=== PATIENT | male | born 1990 | race Two or more races ===

== ENCOUNTER 2018-07-11 16:18 | Emergency (ER) | payer OTHER ==
[2018-07-11 16:35] VITALS: BP 111/70
[2018-07-11] MEDS ORDERED: ONDANSETRON HCL INJ/PF 4 MG/2 ML SDV IV ONE (17:25)
[2018-07-11] MEDS ORDERED: HYDROXYZINE HCL INJ 50 MG/1 ML VIAL IM ONE (17:25)
--- NOTE | 2018-07-11 17:31 | ER Document Report ---
ED Medical Screen (RME) - General Chief Complaint: Anxiety Stated Complaint: PSYCH Time Seen by Provider: 07/11/18 17:22 - HPI Notes: 07/11/18 17:29 Patient with history of PTSD did not take any of his medications today but did take a herbal supplement called a K shot. States that he continues to have nausea vomiting and is having a panic attack. 07/11/18 17:30 While patient is triage area is having such a bad panic attack cannot take his vomit bag to the trash can therefore dropped on the floor - Related Data Allergies/Adverse Reactions: No Known Allergies Allergy (Unverified 07/11/18 16:20) Past Medical History - Social History Chew tobacco use (# tins/day): No Frequency of alcohol use: None Drug Abuse: None Renal/ Medical History: Denies: Hx Peritoneal Dialysis Psychiatric Medical History: Reports: Hx Depression - Anxiety, PTSD Review of Systems - Review of Systems Neurological/Psychological: Anxiety Physical Exam - Vital signs Vitals: Temp Pulse Resp BP Pulse Ox 97.4 F 81 18 111/70 97 07/11/18 16:32 07/11/18 16:32 07/11/18 16:32 07/11/18 16:32 07/11/18 16:32 - Respiratory Respiratory status: No respiratory distress Chest status: Nontender Breath sounds: Normal Chest palpation: Normal - Cardiovascular Rhythm: Regular Heart sounds: Normal auscultation Course - Vital Signs Vital signs: Temp Pulse Resp BP Pulse Ox 97.4 F 81 18 111/70 97 07/11/18 16:32 07/11/18 16:32 07/11/18 16:32 07/11/18 16:32 07/11/18 16:32 Doctor's Discharge - Discharge Instructions: Anxiety ([facility])
[2018-07-11 17:50] LABS: HEMATOCRIT 49.3 % (37.9-51.0); HEMOGLOBIN 17.3 g/dL (13.5-17.0); MEAN CORPUSCULAR HEMOGLOBIN 28.7 pg (27.0-33.4); MEAN CORPUSCULAR HGB CONC 35.1 g/dL (32.0-36.0); MEAN CORPUSCULAR VOLUME 82 fl (80-97); PLATELET COUNT 410 10^3/uL (150-450); RED BLOOD COUNT 6.02 10^6/uL (4.35-5.55); RED CELL DISTRIBUTION WIDTH 13.4 % (11.5-14.0)
[2018-07-11 18:04] LABS: ALANINE AMINOTRANSFERASE 30 U/L (21-72); ALBUMIN 5.6 g/dL (3.5-5.0); ALKALINE PHOSPHATASE 85 U/L (38-126); ASPARTATE AMINO TRANSFERASE 28 U/L (17-59); BILIRUBIN,DIRECT 0.2 mg/dL (0.0-0.4); BILIRUBIN,TOTAL 1.3 mg/dL (0.2-1.3); BLOOD UREA NITROGEN 19 mg/dL (7-20); CALCIUM 11.2 mg/dL (8.4-10.2); CARBON DIOXIDE 19 mmol/L (22-30); CHLORIDE 101 mmol/L (98-107); GLUCOSE 161 mg/dL (75-110); POTASSIUM 3.9 mmol/L (3.6-5.0); SODIUM 143.7 mmol/L (137-145); TOTAL PROTEIN 8.9 g/dL (6.3-8.2)
[2018-07-11 18:05] LABS: ACETAMINOPHEN < 10 ug/mL (10-30); ALCOHOL < 10 mg/dL (NONE DETECTED); SALICYLATE < 1.0 mg/dL (2.0-20.0)
[2018-07-11 18:07] LABS: ABSOLUTE LYMPHOCYTES# (MANUAL) 2.4 10^3/uL (0.5-4.7); ABSOLUTE MONOCYTES # (MANUAL) 1.2 10^3/uL (0.1-1.4); ABSOLUTE NEUTROPHILS# (MANUAL) 20.4 10^3/uL (1.7-8.2); BAND NEUTROPHILS % (MANUAL) 1 % (3-5); BASOPHILS % (MANUAL) 0 % (0-2); EOSINOPHILS % (MANUAL) 0 % (0-6); LYMPHOCYTES % (MANUAL) 10 % (13-45); MONOCYTES % (MANUAL) 5 % (3-13); PLATELET COMMENT ADEQUATE; SEGMENTED NEUTROPHILS % (MAN) 84 % (42-78); TOTAL CELLS COUNTED 100; TOXIC GRANULATION SLIGHT
--- NOTE | 2018-07-11 18:09 | ER Document Report ---
ED Psych Disorder / Suicide - General Chief Complaint: Anxiety Stated Complaint: PSYCH Time Seen by Provider: 07/11/18 18:17 Mode of Arrival: Ambulatory Information source: Patient Notes: Patient is a 28-year-old male with a history of PTSD, anxiety disorder, and recurrent panic attacks presents with increased anxiety and "uneasy feeling" since earlier this afternoon. Patient reports he did not take his normal medications, including buspirone and Ativan, because he did not want to "feel like a zombie." He also reports having chronic nausea that was previously controlled with medicinal marijuana, however since moving from [place] he has changed medications but does report smoking marijuana a couple weeks ago. He denies other drug use. He denies suicidal or homicidal ideations, no hallucinations. TRAVEL OUTSIDE OF THE [place] IN LAST 30 DAYS: No - HPI Patient complains to provider of: Other - Anxiety Onset: This afternoon Onset was: Gradual Quality of pain: No pain Severity: Mild Pain Level: Denies Suicide Risk Factors: Male, Panic disorder Situational problems related to: Other - Medications Normal mood: No Associated symptoms: Anxious, Irritable Similar symptoms previously: Yes Recently seen / treated by doctor: No - Related Data Allergies/Adverse Reactions: No Known Allergies Allergy (Unverified 07/11/18 16:20) Past Medical History - General Information source: Patient - Social History Smoking Status: Never Smoker Chew tobacco use (# tins/day): No Frequency of alcohol use: None Drug Abuse: None Lives with: Alone Family History: None Patient has suicidal ideation: No Patient has homicidal ideation: No - Past Medical History Cardiac Medical History: Reports: None Pulmonary Medical History: Reports: None EENT Medical History: Reports: None Neurological Medical History: Reports: None Endocrine Medical History: Reports: None Renal/ Medical History: Reports: None. Denies: Hx Peritoneal Dialysis Malignancy Medical History: Reports None GI Medical History: Reports: None Musculoskeletal Medical History: Reports None Skin Medical History: Reports None Psychiatric Medical History: Reports: Hx Depression - Anxiety, PTSD, Hx Post Traumatic Stress Disorder Traumatic Medical History: Reports: None Infectious Medical History: Reports: None Surgical Hx: Negative Past Surgical History: Reports: None - Immunizations Immunizations up to date: Yes Hx Diphtheria, Pertussis, Tetanus Vaccination: Yes History of Influenza Vaccine for 05/2017 - 09/2017 Season: Unknown Review of Systems - Review of Systems -: Yes ROS unobtainable due to patient's medical condition Constitutional: No symptoms reported EENT: No symptoms reported Cardiovascular: No symptoms reported Respiratory: No symptoms reported Gastrointestinal: No symptoms reported Genitourinary: No symptoms reported Male Genitourinary: No symptoms reported Musculoskeletal: No symptoms reported Skin: No symptoms reported Hematologic/Lymphatic: No symptoms reported Neurological/Psychological: Anxiety. denies: Homicidal ideation -: Yes All other systems reviewed and negative Physical Exam - Vital signs Vitals: Temp Pulse Resp BP Pulse Ox 97.4 F 81 18 111/70 97 07/11/18 16:32 07/11/18 16:32 07/11/18 16:32 07/11/18 16:32 07/11/18 16:32 Interpretation: Normal - General General appearance: Appears well, Alert In distress: None - HEENT Head: Normocephalic, Atraumatic Eyes: Normal Pupils: PERRL - Respiratory Respiratory status: No respiratory distress Chest status: Nontender Breath sounds: Normal Chest palpation: Normal - Cardiovascular Rhythm: Regular Heart sounds: Normal auscultation Murmur: No - Abdominal Inspection: Normal Distension: No distension Bowel sounds: Normal Tenderness: Nontender Organomegaly: No organomegaly - Rectal Tenderness: No - Deferred - Genitourinary Notes: Deferred - Back Back: Normal, Nontender - Extremities General upper extremity: Normal inspection, Nontender, Normal color, Normal ROM , Normal temperature General lower extremity: Normal inspection, Nontender, Normal color, Normal ROM , Normal temperature, Normal weight bearing. No: Alva's sign - Neurological Neuro grossly intact: Yes Cognition: Normal Orientation: AAOx4 [place] Coma Scale Eye Opening: Spontaneous Ruben Coma Scale Verbal: Oriented Ruben Coma Scale Motor: Obeys Commands [place] Coma Scale Total: 15 Speech: Normal Motor strength normal: LUE, RUE, LLE, RLE Sensory: Normal - Psychological Associated symptoms: Normal affect, Anxious - Skin Skin Temperature: Warm Skin Moisture: Dry Skin Color: Normal Course - Re-evaluation Re-evalutation: 07/11/18 19:18 Plan is to obtain labs, give IV Ativan, and reassess. 07/11/18 20:35 Patient is medically clear and feels improved after IV Ativan. He will be discharged home with return precautions and follow-up as scheduled in the morning. The patient agrees with and understands the plan. - Vital Signs Vital signs: Temp Pulse Resp BP Pulse Ox 97.4 F 81 18 111/70 97 07/11/18 16:32 07/11/18 16:32 07/11/18 16:32 07/11/18 16:32 07/11/18 16:32 - Laboratory Result Diagrams: 07/11/18 17:33 07/11/18 17:33 Laboratory results interpreted by me: 07/11/18 07/11/18 07/11/18 17:33 17:33 18:45 WBC 24.0 H RBC 6.02 H Hgb 17.3 H Seg Neuts % (Manual) 84 H Band Neutrophils % 1 L Lymphocytes % (Manual) 10 L Abs Neuts (Manual) 20.4 H Carbon Dioxide 19 L Anion Gap 24 H Glucose 161 H Calcium 11.2 H Total Protein 8.9 H Albumin 5.6 H Urine Protein 30 H Urine Ketones 80 H Salicylates < 1.0 L Acetaminophen < 10 L - Diagnostic Test Radiology reviewed: Reports reviewed - EKG Interpretation by Me EKG shows normal: Sinus rhythm Rate: Normal Rhythm: NSR [place]/QRS: No: LBBB P Waves: No: LONI, LAE, Absent, AV Dissociation, Other Heart block present: No: 1st Degree, Mobitz 1, Mobitz 2, CHB (3rd degree block) When compared to previous EKG there are: Previous EKG unavailable Discharge - Discharge Clinical Impression: Anxiety Condition: Good Disposition: HOME, SELF-CARE Instructions: Anxiety ([facility]), Family Physicians / Practices Additional Instructions: Please follow-up with your physician [facility]. Return to the emergency department if you experience chest pain, shortness of breath, or worsening symptoms. Print Language: Japanese
[2018-07-11 18:11] LABS: ANION GAP 24 (5-19)
[2018-07-11] MEDS: NORMAL SALINE 1000 ML 1,000 ML IV PRN ×2 (18:17→18:53)
[2018-07-11] MEDS ORDERED: LORAZEPAM INJ 2 MG/1 ML VIAL IV ONE (18:40)
[2018-07-11 19:16] LABS: APPEARANCE,URINE SLIGHTLY-CLOUDY; BILIRUBIN,URINE NEGATIVE (NEGATIVE); COLOR,URINE YELLOW; GLUCOSE, URINE NEGATIVE (NEGATIVE); KETONES,URINE 80 mg/dL (NEGATIVE); LEUKOCYTE ESTERASE,URINE NEGATIVE (NEGATIVE); NITRITE,URINE NEGATIVE (NEGATIVE); PROTEIN,URINE 30 mg/dL (NEGATIVE); URINE SPECIFIC GRAVITY 1.027; UROBILINOGEN,URINE NEGATIVE mg/dL (<2.0)
[2018-07-11 19:27] LABS: URINE AMPHETAMINES SCREEN NEGATIVE; URINE BARBITURATES SCREEN NEGATIVE; URINE BENZODIAZEPINES SCREEN UNCONFIRMED POSITIVE; URINE COCAINE SCREEN NEGATIVE; URINE MARIJUANA (THC) SCREEN UNCONFIRMED POSITIVE; URINE METHADONE SCREEN NEGATIVE; URINE PHENCYCLIDINE SCREEN NEGATIVE
--- NOTE | 2018-07-12 13:12 | EKG REPORT ---
SEVERITY:- BORDERLINE ECG - SINUS RHYTHM BORDERLINE PROLONGED QT INTERVAL : Confirmed by: Aminta Gibson MD 12-Jul-2018 13:11:03
== END 2018-07-11 20:35 | disposition home or self-care (01) ==
LOC: ER 16:18
DX: F41.9 Anxiety disorder, unspecified (principal); R11.10 Vomiting, unspecified
CPT/HCPCS: 93005; 99284; 96372; 96361; 96374; 96375; 36415; 80307 ×4; 85025; 80053; 81001; 93010; J3490; J2060; J2405; J7030

== ENCOUNTER 2018-10-27 06:34 | Emergency (ER) | payer OTHER ==
[2018-10-27 06:40] VITALS: BP 109/69
== END 2018-10-27 07:02 | disposition left against medical advice (07) ==
LOC: ER 06:34
DX: Z53.21 Procedure and treatment not carried out due to patient leaving prior to being seen by health care provider (principal)

== ENCOUNTER 2019-04-03 09:10 | Emergency (ER) | payer OTHER ==
[2019-04-03] MEDS ORDERED: TETRACAINE HCL 0.5% OPH SOLN 4 ML OS ONE (09:51)
--- NOTE | 2019-04-03 09:55 | ER Document Report ---
HPI - HPI Patient complains to provider of: Left eye pain and tearing Time Seen by Provider: 04/03/19 09:44 Onset: Other Onset/Duration: Waxing and waning - Months Quality of pain: Burning Pain Level: 2 Context: She states that he accidentally poked his eye with a small screwdriver 6 months ago. Patient states the pain got better and then returned 2 months ago. Pat ient states that he has had pain to the left eye that worsened yesterday. Patient denies any new injury. Patient complains of redness and tearing. Patient does not wear glasses or contact lenses. Patient does report blurred vision off and on since yesterday. Associated Symptoms: Other - Left eye pain redness and tearing. denies: Headache Exacerbated by: Other - Light sensitivity Relieved by: Denies Similar symptoms previously: No Recently seen / treated by doctor: No - ROS ROS below otherwise negative: Yes Systems Reviewed and Negative: Yes All other systems reviewed and negative - CONSTITUTIONAL Constitutional: DENIES: Fever - EENT EENT: REPORTS: Eye problems - NEURO Neurology: DENIES: Headache, Weakness - GASTROINTESTINAL Gastrointestinal: DENIES: Patient vomiting - DERM Skin Color: Normal Skin Problems: None Past Medical History - General Information source: Patient - Social History Smoking Status: Never Smoker Frequency of alcohol use: None Drug Abuse: None Occupation: none Family History: None Renal/ Medical History: Denies: Hx Peritoneal Dialysis GI Medical History: Reports: Hx Gastroesophageal Reflux Disease Psychiatric Medical History: Reports: Hx Depression - Anxiety, PTSD, Hx Post Traumatic Stress Disorder Past Surgical History: Reports: Hx Tonsillectomy - Immunizations Immunizations up to date: Yes Hx Diphtheria, Pertussis, Tetanus Vaccination: Yes Vertical Provider Document - CONSTITUTIONAL Agree With Documented VS: Yes Exam Limitations: No Limitations General Appearance: WD/WN, No Apparent Distress - INFECTION CONTROL TRAVEL OUTSIDE OF THE [place] IN LAST 30 DAYS: No - HEENT HEENT: Atraumatic, Normocephalic - NECK Neck: Normal Inspection - RESPIRATORY Respiratory: No Respiratory Distress - MUSCULOSKELETAL/EXTREMETIES Musculoskeletal/Extremeties: MAEW - NEURO Level of Consciousness: Awake, Alert, Appropriate Motor/Sensory: No Motor Deficit - DERM Integumentary: Warm, Dry, No Rash Course - Re-evaluation Re-evalutation: 04/03/19 11:05 dr nevarez to bedside for exam, pt with negative Haywood test, no concern for globe rupture at this time. Recommends treatment for corneal abrasions and outp atient follow-up with ophthalmology in the next few days. - Vital Signs Vital signs: Temp Pulse Resp BP Pulse Ox 98.0 F 57 L 16 122/64 99 04/03/19 09:14 04/03/19 09:14 04/03/19 09:14 04/03/19 09:14 04/03/19 09:14 Discharge - Discharge Clinical Impression: Corneal abrasion Qualifiers: Encounter type: initial encounter Laterality: left Qualified Code(s): S05.02XA - Injury of conjunctiva and corneal abrasion without foreign body, left eye, initial encounter Condition: Stable Disposition: HOME, SELF-CARE Instructions: Antibiotic Therapy ([facility]), Corneal Abrasion ([facility]), Eyedrop Use ([facility]) Additional Instructions: Return immediately for any new or worsening symptoms Followup with your primary care provider, call tomorrow to make a followup appointment Follow-up with an oim consultant this week for repeat examination. Prescriptions: Ofloxacin [Ocuflox] 2 drop OP QID #5 ml Forms: Smoking Cessation Education Referrals: DAYRON FERRER MD [Primary Care Provider] - Follow up as needed MINH KENNEDY DO [ACTIVE STAFF] - Follow up as needed [facility] [Provider Group] - Follow up in 3-5 days
[2019-04-03 11:18] VITALS: BP 130/74
== END 2019-04-03 11:18 | disposition home or self-care (01) ==
LOC: ER 09:10
DX: S05.02XD Injury of conjunctiva and corneal abrasion without foreign body, left eye, subsequent encounter (principal); H57.12 Ocular pain, left eye; W22.8XXD Striking against or struck by other objects, subsequent encounter
CPT/HCPCS: 99283; J3490

== ENCOUNTER 2019-04-18 20:24 | Emergency (ER) | payer OTHER ==
--- NOTE | 2019-04-18 20:51 | ER Document Report ---
ED Medical Screen (RME) - General Chief Complaint: Leg Pain Stated Complaint: CHEST PAIN Time Seen by Provider: 04/18/19 20:40 Primary Care Provider: DAYRON FERRER MD [Primary Care Provider] - Follow up as needed Mode of Arrival: Ambulatory Information source: Patient Notes: This 28-year-old male presents emergency department with left thigh pain for the past 5 days that comes and goes with contractions. Also complains of shooting pains in the left side of his chest with shortness of breath twice both times when he was driving. Denies history of PE DVT. Denies history of cocaine abuse denies history of red bull energy drinks. No other symptoms such as fever vomiting diarrhea. Patient did go see the urgent care yesterday they did lab work he has not heard back from them. [facility]. Patient declined Motrin. Patient is very animated respiratory rate even unlabored no distress. Reports family history of high blood pressure believes his uncle had a heart attack. I have greeted and performed a rapid initial assessment of this patient. A comprehensive ED assessment and evaluation of the patient, analysis of test results and completion of the medical decision making process will be conducted by additional ED providers. Dictation of this chart was performed using voice recognition software; therefore, there may be some unintended grammatical errors. TRAVEL OUTSIDE OF THE [place] IN LAST 30 DAYS: No - Related Data Allergies/Adverse Reactions: No Known Allergies Allergy (Verified 04/18/19 20:28) Past Medical History - Social History Chew tobacco use (# tins/day): No Frequency of alcohol use: None Drug Abuse: None Renal/ Medical History: Denies: Hx Peritoneal Dialysis GI Medical History: Reports: Hx Gastroesophageal Reflux Disease Psychiatric Medical History: Reports: Hx Depression - Anxiety, PTSD, Hx Post Tr aumatic Stress Disorder Past Surgical History: Reports: Hx Tonsillectomy - Immunizations Immunizations up to date: Yes Hx Diphtheria, Pertussis, Tetanus Vaccination: Yes History of Influenza Vaccine for 05/2017 - 09/2017 Season: Unknown Physical Exam - Vital signs Vitals: Temp Pulse Resp BP Pulse Ox 98.4 F 71 18 117/72 96 04/18/19 20:35 04/18/19 20:35 04/18/19 20:35 04/18/19 20:35 04/18/19 20:35 Course - Vital Signs Vital signs: Temp Pulse Resp BP Pulse Ox 98.4 F 71 18 117/72 96 04/18/19 20:35 04/18/19 20:35 04/18/19 20:35 04/18/19 20:35 04/18/19 20:35 Doctor's Discharge - Discharge Referrals: DAYRON FERRER MD [Primary Care Provider] - Follow up as needed
[2019-04-18 21:09] LABS: ABSOLUTE BASOPHILS # (AUTO) 0.1 10^3/uL (0.0-0.2); ABSOLUTE EOSINOPHILS # (AUTO) 0.1 10^3/uL (0.0-0.6); ABSOLUTE LYMPHOCYTES (AUTO) 4.8 10^3/uL (0.5-4.7); ABSOLUTE MONOCYTES (AUTO) 0.6 10^3/uL (0.1-1.4); BASOPHILS % (AUTO) 1.2 % (0-2); EOSINOPHILS % (AUTO) 1.1 % (0-6); HEMATOCRIT 47.6 % (37.9-51.0); HEMOGLOBIN 16.6 g/dL (13.5-17.0); MEAN CORPUSCULAR HGB CONC 34.8 g/dL (32.0-36.0); MEAN CORPUSCULAR VOLUME 83 fl (80-97); MONOCYTES % (AUTO) 5.1 % (3-13); PLATELET COUNT 360 10^3/uL (150-450); RED BLOOD COUNT 5.72 10^6/uL (4.35-5.55); RED CELL DISTRIBUTION WIDTH 13.4 % (11.5-14.0); SEGMENTED NEUTROPHILS % (AUTO) 51.6 % (42-78); TOTAL CELLS COUNTED % (AUTO) 100 %; WHITE BLOOD COUNT 11.6 10^3/uL (4.0-10.5)
[2019-04-18 21:33] LABS: INTERNATIONAL RATION (INR) 1.14; PROTHROMBIN TIME 14.6 SEC (11.4-15.4)
[2019-04-18 21:34] LABS: PARTIAL THROMBOPLASTIN TIME 32.2 SEC (23.5-35.8)
--- NOTE | 2019-04-18 21:44 | RADIOLOGY REPORT (SQ) ---
XR CHEST 2 VIEWS CLINICAL STATEMENT: cp sob COMPARISON: None FINDINGS: Cardiomediastinal silhouette is within normal limits. There is no focal lung consolidation or pleural effusion. No evidence of pulmonary edema or pneumothorax. IMPRESSION: No acute cardiopulmonary disease.
[2019-04-18 22:08] LABS: ALBUMIN 4.9 g/dL (3.5-5.0); ALKALINE PHOSPHATASE 58 U/L (38-126); ANION GAP 12 (5-19); ASPARTATE AMINO TRANSFERASE 21 U/L (17-59); BILIRUBIN,DIRECT 0.1 mg/dL (0.0-0.4); BILIRUBIN,TOTAL 0.5 mg/dL (0.2-1.3); BLOOD UREA NITROGEN 22 mg/dL (7-20); CALCIUM 10.3 mg/dL (8.4-10.2); CARBON DIOXIDE 26 mmol/L (22-30); CHLORIDE 102 mmol/L (98-107); CREATINE KINASE 70 U/L (55-170); GLUCOSE 91 mg/dL (75-110); POTASSIUM 4.1 mmol/L (3.6-5.0); TOTAL PROTEIN 7.4 g/dL (6.3-8.2)
--- NOTE | 2019-04-18 22:24 | RADIOLOGY REPORT (SQ) ---
Left lower extremity duplex venous ultrasonography HISTORY: Left lower extremity pain, rule out DVT. Technique: Duplex venous ultrasonography including color and spectral flow Doppler imaging was performed in left lower extremity, focusing on the deep venous system. FINDINGS: There is no evidence of thrombosis in the left common femoral, superficial femoral and popliteal veins. The veins are compressible and demonstrate normal response to augmentation. IMPRESSION: No evidence of DVT in left lower extremity.
--- NOTE | 2019-04-18 22:42 | ER Document Report ---
ED General - General Chief Complaint: Leg Pain Stated Complaint: CHEST PAIN Time Seen by Provider: 04/18/19 20:40 Primary Care Provider: DAYRON FERRER MD [Primary Care Provider] - Follow up in 1 week Mode of Arrival: Ambulatory Information source: Patient Notes: his 28-year-old male presents emergency department with left thigh pain for the past 5 days that comes and goes with contractions. Also complains of shooting pains in the left side of his chest with shortness of breath twice both times when he was driving. Denies history of PE DVT. Denies history of cocaine abuse denies history of red bull energy drinks. No other symptoms such as fever vomiting diarrhea. Patient did go see the urgent care yesterday they did lab work he has not heard back from them. He contacted the [facility] and they told him to come to the emergency department. Patient declined Motrin. Patient is very animated respiratory rate even unlabored no distress. Reports family history of high blood pressure believes his uncle had a heart attack. TRAVEL OUTSIDE OF THE [place] IN LAST 30 DAYS: No - HPI Onset: Last week Onset/Duration: Persistent Quality of pain: Achy Severity: Severe Pain Level: 5 Context: Patient reports pain comes and goes in spasms no pain at this time. Associated symptoms: Chest pain, Shortness of breath Exacerbated by: Denies Relieved by: Denies Similar symptoms previously: No Recently seen / treated by doctor: No - Related Data Allergies/Adverse Reactions: No Known Allergies Allergy (Verified 04/18/19 20:28) Past Medical History - General Information source: Patient - Social History Smoking Status: Current Every Day Smoker Chew tobacco use (# tins/day): No Frequency of alcohol use: None Drug Abuse: None Lives with: Family Family History: None Patient has suicidal ideation: No Patient has homicidal ideation: No Renal/ Medical History: Denies: Hx Peritoneal Dialysis GI Medical History: Reports: Hx Gastroesophageal Reflux Disease Psychiatric Medical History: Reports: Hx Depression - Anxiety, PTSD, Hx Post Traumatic Stress Disorder Past Surgical History: Reports: Hx Tonsillectomy - Immunizations Immunizations up to date: Yes Hx Diphtheria, Pertussis, Tetanus Vaccination: Yes Review of Systems - Review of Systems Notes: Review HPI for review of systems., All other systems negative Physical Exam - Vital signs Vitals: Temp Pulse Resp BP Pulse Ox 98.4 F 71 18 117/72 96 04/18/19 20:35 04/18/19 20:35 04/18/19 20:35 04/18/19 20:35 04/18/19 20:35 Course - Re-evaluation Re-evalutation: 04/18/19 22:41 28-year-old male presents emergency department with left thigh pain for the past 5 days that comes and goes with contractions. Also complains of shooting pains in the left side of his chest with shortness of breath twice both times when he was driving. Otherwise he was not having any shooting pains or sh ortness of breath. Denies history of PE DVT. Left leg with no swelling no erythema no warmth. No past history of injury. Respiratory rate even unlabored. 04/18/19 20:57 04/18/19 20:57 MCV 83 fl (80-97) 04/18/19 20:57 MCH 29.0 pg (27.0-33.4) 04/18/19 20:57 MCHC 34.8 g/dL (32.0-36.0) 04/18/19 20:57 RDW 13.4 % (11.5-14.0) 04/18/19 20:57 Seg Neutrophils % 51.6 % (42-78) 04/18/19 20:57 Chloride 102 mmol/L (98-107) 04/18/19 20:57 Carbon Dioxide 26 mmol/L (22-30) 04/18/19 20:57 Anion Gap 12 (5-19) 04/18/19 20:57 Est GFR ( Amer) > 60 (>60) 04/18/19 20:57 Glucose 91 mg/dL (75-110) 04/18/19 20:57 Calcium 10.3 mg/dL (8.4-10.2) H 04/18/19 20:57 Total Bilirubin 0.5 mg/dL (0.2-1.3) 04/18/19 20:57 AST 21 U/L (17-59) 04/18/19 20:57 Alkaline Phosphatase 58 U/L (38-126) 04/18/19 20:57 Total Protein 7.4 g/dL (6.3-8.2) 04/18/19 20:57 Albumin 4.9 g/dL (3.5-5.0) 04/18/19 20:57 04/18/19 04/18/19 20:57 20:57 Creatine Kinase 70 Troponin I < 0.012 Chest X-Ray 04/18/19 20:49 IMPRESSION: No acute cardiopulmonary disease. Venous Doppler Study 04/18/19 20:49 IMPRESSION: No evidence of DVT in left lower extremity. 04/18/19 22:42 Patient is resting in bed with his girlfriend no distress no cough. Labs unremarkable vital signs stable no recent trip no reason to think of PE or DVT. Patient was instructed on all results. Instructed on the importance of follow- up with his primary care provider within the week for recheck. He verbalized understanding to all instructions. 04/18/19 22:47 - Vital Signs Vital signs: Temp Pulse Resp BP Pulse Ox 98.1 F 66 17 121/79 100 04/18/19 22:44 04/18/19 22:44 04/18/19 22:44 04/18/19 22:44 04/18/19 22:44 - Laboratory Result Diagrams: 04/18/19 20:57 04/18/19 20:57 Laboratory results interpreted by me: 04/18/19 04/18/19 20:57 20:57 WBC 11.6 H RBC 5.72 H Absolute Lymphs (auto) 4.8 H BUN 22 H Calcium 10.3 H - Diagnostic Test Radiology reviewed: Image reviewed, Reports reviewed Discharge - Discharge Clinical Impression: Leg pain, left Condition: Stable Disposition: HOME, SELF-CARE Additional Instructions: *You have been evaluated for leg pain *Your labs and Doppler were negative for any acute injury or DVT *Take Motrin as indicated for your pain *Follow up with primary care provider within 1 week for recheck. *Return to ED for worsening condition, changes, needs Referrals: DAYRON FERRER MD [Primary Care Provider] - Follow up in 1 week
[2019-04-18 22:44] VITALS: BP 121/79
--- NOTE | 2019-04-19 07:22 | EKG REPORT ---
SEVERITY:- NORMAL ECG - SINUS RHYTHM : Confirmed by: Osorio Marion MD 19-Apr-2019 07:22:38
== END 2019-04-18 22:45 | disposition home or self-care (01) ==
LOC: ER 20:24
DX: M79.652 Pain in left thigh (principal); R07.9 Chest pain, unspecified; R06.02 Shortness of breath; F17.200 Nicotine dependence, unspecified, uncomplicated
CPT/HCPCS: 36415; 71046; 80053; 82550; 84484; 85025; 85610; 85730; 93005; 93010; 93971; 99285